=== PATIENT | male | born 1950 | race Caucasian/White ===

== ENCOUNTER 2024-07-27 18:10 | Emergency (ER) | payer MEDICARE, MEDICAID, SELFPAY ==
[2024-07-27 19:10] VITALS: BP 139/76; PULSE 91; RESP 18; TEMP 37.7; O2SAT 99
--- NOTE | 2024-07-27 19:35 | XR_ITS ---
Examination: Knee, right , 3 views Technique: Knee AP, lateral, oblique 3 views Date and time of exam: July 27, 2024 1941 hours INDICATIONS: Patient fell today with into the knee, knee pain. FINDINGS: Severe osteopenia No fracture or dislocation IMPRESSION: No fracture or dislocation
--- NOTE | 2024-07-27 19:43 | PD.EDURI ---
Upper Respiratory Inf. RME/HPI General Chief Complaint: Fever Stated Complaint: FEVER, SORE THROAT, CHILLS Time Seen by Provider: 07/27/24 19:35 Arrival date/time: 07/27/24 18:10 74M with history of cerebral palsy and HTN presents to ED with several days of cough and sore throat. Separately, patient sustained mechanical fall and hit R knee. Patient denies hitting his head. Limitations: no limitations Related Data Home Medications ?Medication ?Instructions ?Recorded ?Confirmed esomeprazole magnesium 20 mg 40 mg PO QDAY 04/23/22 04/23/22 capsule,delayed release (Nexium) lisinopril 20 mg tablet 20 mg PO QDAY 04/23/22 04/23/22 Previous Rx's ?Medication ?Instructions ?Recorded nirmatrelvir 300 mg (150 mg See Rx Instructions PO .COMPLEX 07/27/24 x2)-ritonavir 100 mg tablet,dose #30 tabs pack (Paxlovid) Allergies Allergy/AdvReac Type Severity Reaction Status Date / Time codeine AdvReac Mild GETS Verified 07/27/24 18:14 WEILUIS CARLOS Review of Systems Review of Systems Systems Reviewed: All systems reviewed, normal except as documented Constitutional Constitutional: Reports system reviewed and no additional complaints, except as documented, Denies fever(s) and Denies headache(s) ENT Ears, Nose, Mouth, and Throat: Reports as per HPI, Denies disequilibrium, Denies headache(s) and Reports sore throat Cardiovascular Cardiovascular: Reports system reviewed and no additional complaints, except as documented, Denies chest pain and Denies dyspnea Respiratory Respiratory: Reports system reviewed and no additional complaints, except as documented, Reports as per HPI, Reports cough and Denies dyspnea Gastrointestinal Gastrointestinal: Reports system reviewed and no additional complaints, except as documented, Denies abdominal pain, Denies nausea and Denies vomiting Neurologic Neurologic: Reports system reviewed and no additional complaints, except as documented, Denies confusion, Denies disequilibrium and Denies headache(s) Psychiatric Psychiatric: Denies confusion Past Medical History Past Medical History NEUROLOGIC: Positive Neurological Disorders and Cerebral Palsy CARDIAC: Negative Congestive Heart Failure RESPIRATORY: Negative Chronic Obstructive Pulmonary Disease (COPD) GENITOURINARY: Negative Renal Disease ENDOCRINE: Negative Diabetes Mellitus Type 1 or Diabetes Mellitus Type 2 Social History SMOKING STATUS: Never smoker ED Exam General Limitations: Present no limitations General appearance: Present alert and in no apparent distress Head Head exam: Present atraumatic Eye Eye exam: Present normal appearance, PERRL and EOMI ENT ENT exam: Present normal exam, normal oropharynx and mucous membranes moist Neck Neck exam: Present normal inspection, full ROM and trachea midline Chest Chest inspection: Present normal inspection and symmetric chest wall rise Respiratory Respiratory exam: Present normal lung sounds bilaterally Cardiovascular Cardiovascular exam: Present regular rate, normal rhythm and normal heart sounds Abdominal Exam Abdominal exam: Present soft and normal bowel sounds Extremities Exam Extremities exam: Present normal inspection and full ROM Back Exam Back exam: Present normal inspection and full ROM Neurological Exam Neurological exam: Present alert, oriented X3 and CN II-XII intact Psychiatric Psychiatric exam: Present normal affect and normal mood Skin Skin exam: Present warm, dry, intact and normal color Course Quality Measures none Orders Category Date Time Status Bedside COVID-19 Antigen Test NOW Care 07/27/24 19:16 Active Bedside Influenza A&B Antigen Test NOW Care 07/27/24 19:16 Completed XR knee RT 3V Stat Exams 07/27/24 19:35 Completed Acetaminophen Tab [Tylenol ES Tab] Med 07/27/24 19:46 Discontinued 500 mg PO X1 ONE Vital Signs Vital signs: Vital Signs Temperature 100 F 07/27/24 19:10 Pulse Rate 91 07/27/24 19:10 Respiratory Rate 18 07/27/24 19:10 Blood Pressure 139/76 H 07/27/24 19:10 Pulse Oximetry (%) 99 07/27/24 19:10 Oxygen Delivery Method Room Air 07/27/24 19:10 O2 at 99% on RA and WNLs Upper Respiratory Infection MDM Narrative MDM Narrative:: 74M with history of cerebral palsy and HTN presents to ED with several days of cough and sore throat. Separately, patient sustained mechanical fall and hit R knee. Patient denies hitting his head. Physical exam reveals clear lungs. Normal WOB. No R knee tenderness. Pain is with ROM, which is mostly intact. Patient john febrile, calm, and alert. COVID+. XR no fx. Will give Paxlovid given risk factors. Patient data External records reviewed:: [facility] previous records Clinical information provided by:: patient Social determinants that could affect healthcare access:: none Patient has the following chronic illnesses:: THN and cerebral palsy How is presenting disease/condition affected by chronic disease/condition?: exacerbated by Evaluation data The following diagnostics were reviewed and interpreted by me:: lab results and radiology exam(s) Lab and/or radiology exams considered but not ordered:: ordered Interpretation Summary: above Medications / Prescriptions Medications or Prescriptions considered but not ordered:: not ordered Medication administrations:: Medication Administration History Discontinued Medications Acetaminophen (Acetaminophen 500 Mg Tablet) 500 mg PO X1 ONE Stop: 07/27/24 19:47 Last Admin: 07/27/24 20:33 Dose: 500 mg Documented By: KF n/a Consultations Consultation(s) initiated? (list below): No Diagnosis Upper Respiratory Differential Diagnosis: upper respiratory infection, croup, otitis media, sinusitis, viral infection, bronchitis, influenza, pharyngitis and other (knee contusion, internal derangement of knee, knee fx, COVID) Most likely diagnosis given after review of the tests above:: acute internal derangement of knee and COVID Admission Indicated Admission indicated?: not indicated Admission Request Was there a request for admission?: No Disposition Plan Disposition Plan: Discharge Discharge Attestation Discharge Attestation: The patient and all family members were given an opportunity to ask questions and understood the discharge instructions. Discharge instructions specifically effects, indications for sooner follow up or return to the emergency department, and the expected course of current diagnosis. Patient condition: Stable Discharge Plan Plan Patient Disposition: HOME (Self Care) Discharge Disposition comment: Stable Prescriptions/Referrals Prescriptions/Med Rec: New Paxlovid 300 mg (150 mg x 2)-100 mg tablets,dose pack See Rx Instructions .ROUTE .COMPLEX Qty: 30 0RF Rx Instructions: take TWO 150 mg tablets of nirmatrelvir with ONE 100 mg tablet of ritonavir twice daily for 5 days No Action lisinopril 20 mg Tablet 20 mg PO QDAY esomeprazole magnesium [Nexium] 20 mg Capsule,Delayed Release(Dr/Ec) 40 mg PO QDAY Referrals: No Primary/Family,Physician [Primary Care Provider] - In 1 week Problem List Clinical Impression: Acute internal derangement of knee, COVID-19 Patient/Caregiver Discharge Instructions Education Materials: 2019-nCoV, How Your Knee Works Additional Instructions: Please follow-up with PCP within 24-48 hours and return immediately if symptoms worsen. If knee problem persists, recommend outpatient PT and/or MRI follow-up. In the meantime, rest, use ice/heat, and/or compression. Ibuprofen/Tylenol can be used simultaneously for greater fever/pain control. Keep hydrated. Print Language: Stateless Stand Alone Forms: Patient Portal Info Letter PA/INTRAVENOUS THERAPY NURSE Supervising Physician PA/INTRAVENOUS THERAPY NURSE Supervising Physician: Dr. Whitt
[2024-07-27] MEDS: ACETAMINOPHEN 500 MG TABLET PO (20:33)
--- NOTE | 2024-07-27 21:49 | PC.NURSE ---
Patient left without discharge paperwork. Call placed to patient. All discharge instructions explained. Informed patient a prescription was sent to his pharmacy. No questions or concerns at this time. ER provider aware.
== END 2024-07-27 21:53 | disposition home or self-care (01) ==
PROVIDERS: Emergency Provider Emergency Medicine
DX: M23.91 Unspecified internal derangement of right knee (principal); I10 Essential (primary) hypertension; G80.9 Cerebral palsy, unspecified; U07.1 COVID-19
CPT/HCPCS: 73562; 87400; 87811; 99283; A9270